=== PATIENT | female | born 1950 | race Caucasian/White ===

== ENCOUNTER 2025-06-18 15:47 | Emergency (ER) | payer MEDICARE ==
[~2025-06-18] VITALS: Ht 170.2 cm; Wt 54.4 kg
[~2025-06-18 15:47] MED LIST: ASCO10004 PO; CHOL500045 PO; CYAN25002 SL; CYCL30DR OP; ESTR1TAB17 PO; KRIL1CAP40 PO; LEVO75TA4 PO; PRAS25CA9 PO; PROG100C11 PO; ZINC220T4 PO
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
--- NOTE | 2025-06-18 16:36 | NUR ---
SPOKE TO JAMIE FLANAGAN, IN REGARDS TO PT C/O. OFFICER WILL BE BY TO SPEAK TO PT.
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
[2025-06-18] MEDS ORDERED: IOHEXOL-350 75 ML VIAL IV ONE (16:47)
--- NOTE | 2025-06-18 17:16 | HMCIMG ---
EXAM: CT Head Without IV contrast. CLINICAL HISTORY: pain TECHNIQUE: Axial computed tomography images of the head/brain without intravenous contrast. COMPARISON: None provided. FINDINGS: BRAIN: No evidence of acute hemorrhage. No mass lesion. No CT evidence for acute territorial infarct. No midline shift or extra-axial collections. VENTRICLES: No hydrocephalus. ORBITS: The orbits are unremarkable. SINUSES AND MASTOIDS: The paranasal sinuses and mastoid air cells are clear. BONES: No fracture. SOFT TISSUES: Unremarkable. IMPRESSION: No acute intracranial abnormality. /[place]
--- NOTE | 2025-06-18 17:34 | HMCIMG ---
EXAM: CT Chest Without Intravenous Contrast. CLINICAL HISTORY: 75-year-old female with pain. TECHNIQUE: Axial computed tomography images of the chest without intravenous contrast. Dose reduction technique was used including one or more of the following: automated exposure control, adjustment of mA and kV according to patient size, and/or iterative reconstruction. CONTRAST: None. COMPARISON: 01/18/2025. FINDINGS: LUNGS: Moderate emphysematous changes throughout the lung orozco. Atelectasis and scarring in the lung bases. No pulmonary mass. No focal airspace consolidation. PLEURAL SPACES: No pleural effusion. No pneumothorax. HEART AND MEDIASTINUM: Left side pacemaker. No cardiomegaly. No significant pericardial effusion. LYMPH NODES: No lymphadenopathy. CHEST WALL AND UPPER ABDOMEN: The upper abdominal solid organs are unremarkable. The chest wall is unremarkable. BONES: Mild degenerative changes of the thoracic spine. No acute osseous abnormality. VASCULATURE: Atherosclerotic changes in the aorta and coronary arteries. IMPRESSION: 1. Moderate emphysematous changes throughout the lung orozco, similar to prior XR Chest 01/18/2025. 2. Atherosclerotic aorta and coronary arteries. /[place]
--- NOTE | 2025-06-18 17:36 | HMCIMG ---
EXAM: CT Cervical Spine Without Intravenous Contrast. CLINICAL HISTORY: 75-year-old female with pain. TECHNIQUE: Axial computed tomography images of the cervical spine without intravenous contrast. Sagittal and coronal reformations performed. Dose reduction technique was used including one or more of the following: automated exposure control, adjustment of mA and kV according to patient size, and/or iterative reconstruction. CONTRAST: None. COMPARISON: None provided. FINDINGS: BONES: No acute fracture or focal osseous lesion. Bony alignment is anatomic. DISCS / DEGENERATIVE CHANGES: Mild degenerative changes of the cervical spine. SOFT TISSUES: No prevertebral soft tissue swelling. PARANASAL SINUSES: Mild mucosal thickening right maxillary sinus. LUNGS: Bilateral apical pleural thickening. IMPRESSION: 1. No acute cervical spine fracture or dislocation. 2. Mild mucosal thickening in the right maxillary sinus. 3. Bilateral apical pleural thickening. /[place]
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
[2025-06-18] MEDS: L.E.T. GEL 3ML SYG TP ONE (18:37)
[2025-06-18 18:54] LABS: IMMATURE GRANULOCYTE ABSOLUTE 0.05 K/uL (0-1); NUCLEATED RED BLOOD CELLS 0.0 % (0.0-0.19); PLATELET COUNT (AUTO) 176 K/uL (130-400); RED BLOOD CELL COUNT(AUTO) 4.27 MIL/uL (4.00-5.50); RED CELL DISTRIBUTION WIDTH 13.2 % (11.0-15.5); WHITE BLOOD COUNT (AUTO) 11.6 K/uL (4.8-10.8)
--- NOTE | 2025-06-18 19:04 | NUR ---
LATE ENTRY REMOVED C-COLLAR AT 1800, PT NOTED WITH LACERATION TO OCCIPATAL AREA, CLEANED WILL CONT TO MONITOR.
[2025-06-18 19:07] LABS: CREATININE 0.8 mg/dL (0.5-1.0); GLOMERULAR FILTR. RATE CALC 77.0 mL/min (>90); GLUCOSE,RANDOM 81.0 mg/dL (70-105); SODIUM SERUM 141.0 mmol/L (136-145); UREA NITROGEN, BLOOD 13.0 mg/dL (7-18)
[2025-06-18 19:16] LABS: ASPARTATE AMINOTRANSFERASE 23.0 U/L (10-37); TOTAL PROTEIN, SERUM 7.1 g/dL (6.0-8.3)
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
[2025-06-18 21:05] VITALS: BP 152/60; PULSE 60; RESP 16; TEMP 98.6; O2SAT 98
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
--- NOTE | 2025-06-19 06:35 | EKG ---
[facility] Test Date: 2025-06-18 Test Time: 17:29:22 Pat Name: MARILIA GONZÁLES Department: [facility] Room: Gender: F Associate Sales Manager: [birth year] : 1950 Requested By: TABITHA SHAH Order Number: [id number] Reading MD: Ronal Loera Measurements Intervals [place] Rate: 60 P: 83 [place]: 148 QRS: 75 QRSD: 91 T: 77 QT: 447 QTc: 446 Interpretive Statements Sinus rhythm Compared to ECG 01/16/2025 16:17:44 Sinus bradycardia no longer present ST (T wave) deviation no longer present Electronically Signed On 06-19-2025 15:01:16 CDT by Ronal Loera Please click the below link to view image of tracing.
== END 2025-06-18 21:05 | disposition home or self-care (01) ==
LOC: EDH 15:47
DX: S62.616A Displaced fracture of proximal phalanx of right little finger, initial encounter for closed fracture (principal); S09.90XA Unspecified injury of head, initial encounter; S01.01XA Laceration without foreign body of scalp, initial encounter; Z79.621 Long term (current) use of calcineurin inhibitor; Z79.890 Hormone replacement therapy; Z95.810 Presence of automatic (implantable) cardiac defibrillator; W18.39XA Other fall on same level, initial encounter; Y93.89 Activity, other specified; Y92.89 Other specified places as the place of occurrence of the external cause; Y99.8 Other external cause status
CPT/HCPCS: 99285; 70450; 84484; 80053; 85025; 36415; 73140; 72220; 72125; 71250; 70498; 29130; 12002; 93005; Q9967